=== PATIENT | male | born 1995 | race African-American/Black ===

== ENCOUNTER 2019-12-30 20:36 | Emergency (ER) | payer MEDICAID ==
[~2019-12-30] VITALS: Ht 185.4 cm; Wt 100.7 kg
[2019-12-30 20:58] VITALS: Ht 185.4 cm; Wt 100.7 kg
[2019-12-30 21:53] VITALS: BP 143/66
== END 2019-12-30 21:53 | disposition home or self-care (01) ==
LOC: ED 20:36
DX: L03.011 Cellulitis of right finger (principal)